=== PATIENT | male | born 1975 | race Caucasian/White ===

== ENCOUNTER 2018-04-27 15:21 | Emergency (ER) | payer MEDICAID, OTHER ==
[~2018-04-27] VITALS: Ht 172.7 cm; Wt 76.2 kg
[2018-04-27] MEDS ORDERED: SODIUM CHLORIDE 0.9% 1,000 ML IV ONE (16:10)
[2018-04-27 16:28] LABS: Basophils # (auto) 0.1 uL; Eosinophils # (auto) 0 uL; Monocytes # (auto) 0.9 uL; Nucleated Red Blood Cells % 0.1 %; Red Cell Distribution Width 13.4 % (11.8-14.3)
[2018-04-27 16:32] LABS: Basophils % (auto) 1.5 % (0.0-2.0); Calcium 8.4 mg/dL (8.5-10.1); Eosinophils % (auto) 0.5 % (0.0-7.0); Hematocrit 41.9 % (41.0-53.0); Hemoglobin 14.9 g/dL (13.5-17.5); Lymphocytes # (auto) 2.8 uL; Lymphocytes % (auto) 31.6 % (10.0-50.0); Mean Corpuscular Hemoglobin 33.4 pg (28.0-32.0); Mean Corpuscular Hgb Conc. 35.5 g/dL (32.0-36.0); Mean Corpuscular Volume 94.1 fL (80.0-100.0); Monocytes % (auto) 10.1 % (0.0-12.0); Neutrophils % (auto) 56.3 % (37.0-80.0); Platelet Count (auto) 487 10^3/uL (140-450); Red Blood Cells 4.46 10^6/uL (4.5-5.90); White Blood Cell 8.9 10^3/uL (4.4-10.8)
[2018-04-27 16:35] LABS: BUN/Creatinine Ratio 7.9; Bilirubin, Total 0.2 mg/dL (0.2-1.0); Total Protein 7.3 g/dL (6.4-8.2)
[2018-04-27 16:39] LABS: Potassium 2.9 mmol/L (3.5-5.1)
[2018-04-27] MEDS ORDERED: POTASSIUM CHL 20 Meq TABLET PO ONE ×2 (17:15→19:30)
[2018-04-27 18:05] LABS: Urine Bacteria NONE SEEN /hpf (None Seen); Urine Blood Negative /uL (Negative); Urine Specific Gravity 1.005 (1.001-1.035); Urine WBC <1 /hpf (0 - 3)
[2018-04-27 18:15] LABS: Amphetamine Screen, Urine NEGATIVE (NEGATIVE); Barbiturate Scree,Urine NEGATIVE (NEGATIVE); Benzodiazephine Screen, Urine NEGATIVE (NEGATIVE); Cannabinoid Screen, Urine NEGATIVE (NEGATIVE); Cocaine Screen, Urine NEGATIVE (NEGATIVE); Opiate Scree,Urine NEGATIVE (NEGATIVE); Phencyclidine Screen, Urine NEGATIVE (NEGATIVE)
[2018-04-27 18:36] VITALS: BP 132/77
== END 2018-04-27 20:13 | disposition home or self-care (01) ==
LOC: ER 15:23
DX: R42 Dizziness and giddiness (principal); E87.6 Hypokalemia; F10.129 Alcohol abuse with intoxication, unspecified; E11.9 Type 2 diabetes mellitus without complications; I10 Essential (primary) hypertension; F17.210 Nicotine dependence, cigarettes, uncomplicated
CPT/HCPCS: 36415; 71046; 80053; 80307; 80320; 81001; 84484; 85025; 93005; 94761; 96360; 99284; J7030

== ENCOUNTER 2020-11-15 08:38 | Inpatient (IN) | payer MEDICAID ==
[~2020-11-15] VITALS: Ht 177.8 cm; Wt 75.3 kg
[2020-11-15] MEDS ORDERED: LORazepam 2MG/ML-1ML VIAL ONE (09:34)
[2020-11-15 09:35] LABS: Basophils # (auto) 0.1 10 ^3/uL (0-0.2); Basophils % (auto) 1.3 % (0.0-2.0); Eosinophils # (auto) 0 10 ^3/uL (0-0.8); Mean Corpuscular Hgb Conc. 34.5 g/dL (32.0-36.0); Monocytes # (auto) 0.8 10 ^3/uL (0-1.3); Neutrophils # (auto) 8.2 10 ^3/uL (1.6-8.6); Nucleated Red Blood Cells % 0.1 %
[2020-11-15 09:36] LABS: Hematocrit 47.6 % (41.0-53.0); Hemoglobin 16.4 g/dL (13.5-17.5); Lymphocytes # (auto) 0.5 10 ^3/uL (0.4-5.4); Mean Corpuscular Hemoglobin 36.9 pg (28.0-32.0); Mean Corpuscular Volume 107.1 fL (80.0-100.0); Monocytes % (auto) 8.4 % (0.0-12.0); Neutrophils % (auto) 85.3 % (37.0-80.0); Platelet Count (auto) 130 10^3/uL (140-450); Red Blood Cells 4.44 10^6/uL (4.5-5.90); Red Cell Distribution Width 14.3 % (11.8-14.3); White Blood Cell 9.6 10^3/uL (4.4-10.8)
[2020-11-15 09:51] LABS: Albumin 4.2 g/dL (3.4-5.0); Anion Gap 21 (5-15); Blood Alcohol < 3.0 mg/dL (0-5); Blood Urea Nitrogen 5 mg/dL (7-18); Calcium 9.7 mg/dL (8.5-10.1); Carbon Dioxide 20 mmol/L (21-32); Chloride 95 mmol/L (98-107); Glucose 174 mg/dL (74-106); Magnesium 2.3 mg/dL (1.6-2.6); Potassium 3.3 mmol/L (3.5-5.1); Sodium 136 mmol/L (136-145)
[2020-11-15 09:56] LABS: Alanine Aminotransferase 83 U/L (16-61); Alkaline Phosphatase 91 U/L (45-117); Aspartate Aminotransferase 152 U/L (15-37); BUN/Creatinine Ratio 5.9; Bilirubin, Total 1.5 mg/dL (0.2-1.0); GFR African American 125 mL/min; GFR Non-African American 104 mL/min; Lactic Acid w/Reflex 9.1 mmol/L (0.4-2.0); Total Protein 7.8 g/dL (6.4-8.2)
[2020-11-15] MEDS ORDERED: PANTOPRAZOLE 40 MG/10 ML VIAL INJ IV ONE (10:00)
[2020-11-15] MEDS ORDERED: SODIUM CHLORIDE 0.9% 1,000 ML IV ONE (10:00)
[2020-11-15] MEDS ORDERED: ONDANSETRON HCL 4 MG/2 ML VIAL IV ONE (10:00)
[2020-11-15] MEDS ORDERED: LORazepam 2MG/ML-1ML VIAL IV ONE (10:15)
[2020-11-15 10:23] LABS: INR 1.01 (0.9-1.15)
[2020-11-15] MEDS ORDERED: POTASSIUM CHL 20MEQ/100ML 100 ML IV ONE (11:30)
[2020-11-15] MEDS ORDERED: MORPHINE SULF INJ 2 MG/ML SYRINGE 1ML IV PRN ×3 (11:30)
[2020-11-15] MEDS ORDERED: LORazepam 2MG/ML-1ML VIAL IV PRN ×2 (11:30→21:45)
[2020-11-15] MEDS ORDERED: PANTOPRAZOLE 40mg/50ML NS AE 50 ML IV ONE (11:30)
[2020-11-15] MEDS ORDERED: D5W/ SOD CHL 0.9%/KCL 20MEQ 1,000 ML IV SCH (11:30)
[2020-11-15] MEDS ORDERED: ONDANSETRON HCL 4 MG/2 ML VIAL IV PRN (11:30)
[2020-11-15] MEDS ORDERED: NITROGLYCERIN 0.4 MG SL TAB SL PRN (11:30)
[2020-11-15] MEDS ORDERED: FOLIC ACID INJ SCH ×10 (12:00→12:02)
[2020-11-15] MEDS ORDERED: MAGNESIUM SULF INJ SCH ×10 (12:00→12:02)
[2020-11-15] MEDS ORDERED: MULTIPLE VITAMIN INJ SCH ×10 (12:00→12:02)
[2020-11-15] MEDS ORDERED: [UNRECOGNIZED DRUG - OTHER] INJ SCH ×10 (12:00→12:02)
[2020-11-15] MEDS ORDERED: POTASSIUM CHLORIDE 20 MEQ, LIDOCAINE 1% (LOCAL ANESTH.) 2 ML in SODIUM CHL 0.9% 100 ML IV ONE (12:15)
[2020-11-15] MEDS: D5W/ SOD CHL 0.9%/KCL 20MEQ 1,000 ML IV SCH (21:31)
[2020-11-15 23:00] VITALS: BP 142/80
[2020-11-16] MEDS: D5W/ SOD CHL 0.9%/KCL 20MEQ 1,000 ML IV SCH ×2 (05:29→17:44)
[2020-11-16 06:37] LABS: Eosinophils # (auto) 0 10 ^3/uL (0-0.8); Lymphocytes # (auto) 0.9 10 ^3/uL (0.4-5.4); Mean Corpuscular Volume 105.9 fL (80.0-100.0); Monocytes # (auto) 0.6 10 ^3/uL (0-1.3)
[2020-11-16 06:41] LABS: Basophils # (auto) 0.1 10 ^3/uL (0-0.2); Basophils % (auto) 0.8 % (0.0-2.0); Eosinophils % (auto) 0.4 % (0.0-7.0); Hematocrit 38.9 % (41.0-53.0); Hemoglobin 13.4 g/dL (13.5-17.5); Lymphocytes % (auto) 14.7 % (10.0-50.0); Mean Corpuscular Hemoglobin 36.5 pg (28.0-32.0); Mean Corpuscular Hgb Conc. 34.5 g/dL (32.0-36.0); Monocytes % (auto) 10.3 % (0.0-12.0); Neutrophils # (auto) 4.5 10 ^3/uL (1.6-8.6); Neutrophils % (auto) 73.8 % (37.0-80.0); Platelet Count (auto) 86 10^3/uL (140-450); Red Blood Cells 3.67 10^6/uL (4.5-5.90); Red Cell Distribution Width 13.7 % (11.8-14.3); White Blood Cell 6.1 10^3/uL (4.4-10.8)
[2020-11-16 07:05] LABS: Albumin 3.2 g/dL (3.4-5.0); BUN/Creatinine Ratio 13.7; Bilirubin, Total 1.3 mg/dL (0.2-1.0); Calcium 8.3 mg/dL (8.5-10.1); Magnesium 2.5 mg/dL (1.6-2.6); Phosphorus 1.5 mg/dL (2.5-4.90); Total Protein 6.1 g/dL (6.4-8.2)
[2020-11-16 07:08] LABS: Folate (Folic Acid) 9.77 ng/mL (5.38-24)
[2020-11-16] MEDS ORDERED: POTASSIUM PHOSPHATE 44 MEQ in D5W 5% 250 ML IV ONE (08:00)
[2020-11-16 09:00] VITALS: BP 138/93
[2020-11-16] MEDS: PANTOPRAZOLE 40 MG/10 ML VIAL INJ IV SCH (09:40)
[2020-11-16] MEDS ORDERED: LISI2.5T47 PO (11:20)
[2020-11-16] MEDS ORDERED: ATEN-60 PO (11:20)
[2020-11-16 13:30] VITALS: BP 143/90
[2020-11-16] MEDS: FOLIC ACID 1 MG, MULTIPLE VITAMIN 10 ML, MAGNESIUM SULF SDV 50% 8 MEQ, THIAMINE INJ 100... INJ SCH ×5 (13:56)
[2020-11-16 16:40] VITALS: BP 144/92
[2020-11-16 21:52] VITALS: BP 142/103
[2020-11-16] MEDS: chlordiazePOXIDE HCL 25 MG CAP PO PRN (23:41)
[2020-11-17 05:00] VITALS: BP 150/93
[2020-11-17] MEDS: D5W/ SOD CHL 0.9%/KCL 20MEQ 1,000 ML IV SCH ×3 (05:49→12:20)
[2020-11-17 08:58] LABS: Urine Bacteria NONE SEEN /hpf (None Seen); Urine Blood Negative /uL (Negative); Urine Mucus FEW (None Seen); Urine Specific Gravity 1.012 (1.001-1.035); Urine WBC 4 /hpf (0 - 3)
[2020-11-17 09:00] VITALS: BP 155/99
[2020-11-17 09:01] LABS: Amphetamine Screen, Urine NEGATIVE (NEGATIVE); Barbiturate Scree,Urine NEGATIVE (NEGATIVE); Benzodiazephine Screen, Urine NEGATIVE (NEGATIVE); Cannabinoid Screen, Urine NEGATIVE (NEGATIVE); Cocaine Screen, Urine NEGATIVE (NEGATIVE); Opiate Scree,Urine NEGATIVE (NEGATIVE); Phencyclidine Screen, Urine NEGATIVE (NEGATIVE)
[2020-11-17] MEDS: PANTOPRAZOLE 40 MG/10 ML VIAL INJ IV SCH (09:01)
[2020-11-17] MEDS: chlordiazePOXIDE HCL 25 MG CAP PO PRN ×2 (09:01→17:06)
[2020-11-17] MEDS: FOLIC ACID 1 MG, MULTIPLE VITAMIN 10 ML, MAGNESIUM SULF SDV 50% 8 MEQ, THIAMINE INJ 100... INJ SCH ×5 (11:34)
[2020-11-17 12:26] LABS: Potassium 3.2 mmol/L (3.5-5.1)
[2020-11-17 12:31] LABS: BUN/Creatinine Ratio 5.4; Calcium 8.6 mg/dL (8.5-10.1); Phosphorus 2.9 mg/dL (2.5-4.90)
[2020-11-17 13:00] VITALS: BP 167/100
[2020-11-17 13:37] VITALS: BP 165/102
[2020-11-17 14:38] VITALS: BP 156/98
[2020-11-17 17:00] VITALS: BP 158/102
== END 2020-11-17 23:51 | disposition left against medical advice (07) | DRG 53 ==
LOC: EDBD 08:38 → ER 08:38 → TELE 11:26 → TELE-EAST 19:44
PROVIDERS: ADMIT Internal Medicine; ATTEND Internal Medicine
PROC: 0HQ0XZZ Repair Scalp Skin, External Approach (ICD-10-PCS; principal; 2020-11-15)
DX: G40.509 Epileptic seizures related to external causes, not intractable, without status epilepticus (principal); D69.6 Thrombocytopenia, unspecified; E87.8 Other disorders of electrolyte and fluid balance, not elsewhere classified; E88.09 Other disorders of plasma-protein metabolism, not elsewhere classified; E86.0 Dehydration; S01.01XA Laceration without foreign body of scalp, initial encounter; Z20.822 Contact with and (suspected) exposure to COVID-19; F10.239 Alcohol dependence with withdrawal, unspecified; D75.89 Other specified diseases of blood and blood-forming organs; E87.6 Hypokalemia; K70.9 Alcoholic liver disease, unspecified; F32.9 Major depressive disorder, single episode, unspecified; I10 Essential (primary) hypertension; Z53.29 Procedure and treatment not carried out because of patient's decision for other reasons; E11.9 Type 2 diabetes mellitus without complications; W18.39XA Other fall on same level, initial encounter; Y93.89 Activity, other specified; Y92.89 Other specified places as the place of occurrence of the external cause; Y99.8 Other external cause status; F17.210 Nicotine dependence, cigarettes, uncomplicated; Y90.0 Blood alcohol level of less than 20 mg/100 ml
CPT/HCPCS: 36415; 70450; 70551; 71045; 80048; 80053; 80307; 80320; 81001; 82550; 82607; 82746; 82962; 83605; 83735; 83880; 84100; 84484; 85025; 85610; 87426; 93005; 95819; 96361; 96365; 96375; 97116; 97530; C9113; G0378; J2001; J2405; J7042; J7060

== ENCOUNTER 2020-11-18 00:46 | Emergency (ER) | payer MEDICAID ==
[~2020-11-18] VITALS: Ht 172.7 cm; Wt 81.6 kg
[~2020-11-18 00:46] MED LIST: ATEN-60 PO; LISI2.5T47 PO
[2020-11-18] MEDS: LORazepam 0.5 MG TAB PO ONE ×2 (02:28→02:38)
[2020-11-18 02:40] VITALS: BP 136/83
[2020-11-21] MEDS ORDERED: GABA300C10 PO (09:25)
[2020-11-21] MEDS ORDERED: PANT40TA2 PO (09:25)
== END 2020-11-18 03:30 | disposition home or self-care (01) ==
LOC: ER 00:46
DX: F41.9 Anxiety disorder, unspecified (principal); F32.9 Major depressive disorder, single episode, unspecified; E11.9 Type 2 diabetes mellitus without complications; I10 Essential (primary) hypertension; F17.210 Nicotine dependence, cigarettes, uncomplicated; Z59.0 Homelessness
CPT/HCPCS: 99283; J7030

== ENCOUNTER 2020-11-18 12:44 | Emergency (ER) | payer MEDICAID ==
[~2020-11-18] VITALS: Ht 172.7 cm; Wt 79.4 kg
[2020-11-18 13:06] LABS: Basophils # (auto) 0.1 10 ^3/uL (0-0.2); Eosinophils # (auto) 0.1 10 ^3/uL (0-0.8); Monocytes # (auto) 0.9 10 ^3/uL (0-1.3)
[2020-11-18 13:07] LABS: Basophils % (auto) 1.1 % (0.0-2.0); Hematocrit 39.1 % (41.0-53.0); Hemoglobin 13.6 g/dL (13.5-17.5); Lymphocytes # (auto) 1.1 10 ^3/uL (0.4-5.4); Lymphocytes % (auto) 12.8 % (10.0-50.0); Mean Corpuscular Hemoglobin 36.8 pg (28.0-32.0); Mean Corpuscular Hgb Conc. 34.8 g/dL (32.0-36.0); Mean Corpuscular Volume 105.7 fL (80.0-100.0); Monocytes % (auto) 10.9 % (0.0-12.0); Neutrophils # (auto) 6.2 10 ^3/uL (1.6-8.6); Neutrophils % (auto) 74.2 % (37.0-80.0); Platelet Count (auto) 116 10^3/uL (140-450); Red Cell Distribution Width 13.8 % (11.8-14.3); White Blood Cell 8.4 10^3/uL (4.4-10.8)
[2020-11-18 13:22] LABS: Albumin 3.7 g/dL (3.4-5.0); Anion Gap 15 (5-15); Blood Urea Nitrogen 6 mg/dL (7-18); Calcium 9.2 mg/dL (8.5-10.1); Carbon Dioxide 21 mmol/L (21-32); Chloride 100 mmol/L (98-107); Glucose 78 mg/dL (74-106); Potassium 3.1 mmol/L (3.5-5.1); Sodium 136 mmol/L (136-145)
[2020-11-18 13:26] LABS: Alanine Aminotransferase 56 U/L (16-61); Alkaline Phosphatase 68 U/L (45-117); Aspartate Aminotransferase 73 U/L (15-37); BUN/Creatinine Ratio 14.3; Bilirubin, Total 1.4 mg/dL (0.2-1.0); GFR African American 283 mL/min; GFR Non-African American 234 mL/min; Total Protein 7.3 g/dL (6.4-8.2)
[2020-11-18 13:27] LABS: Blood Alcohol < 3.0 mg/dL (0-5)
[2020-11-18 13:36] LABS: Salicylate < 1.7 mg/dL (2.8-20.0)
[2020-11-18 13:41] LABS: Acetaminophen < 2.0 ug/mL (10-30)
[2020-11-18] MEDS ORDERED: SODIUM CHLORIDE 0.9% 1,000 ML IVB ONE (13:45)
[2020-11-18] MEDS ORDERED: THIAMINE 100mg/ml INJ (200mg/2ml VIAL) IV ONE (13:45)
[2020-11-18 15:00] VITALS: BP 142/90
[2020-11-18 15:00] LABS: Urine Bacteria NONE SEEN /hpf (None Seen); Urine Blood Negative /uL (Negative); Urine Specific Gravity 1.003 (1.001-1.035); Urine WBC None Seen /hpf (0 - 3)
[2020-11-18] MEDS ORDERED: LORazepam 2MG/ML-1ML VIAL IV ONE (15:00)
[2020-11-18 15:25] LABS: Alcohol, Urine < 3.0 mg/dL (0-10); Amphetamine Screen, Urine NEGATIVE (NEGATIVE); Barbiturate Scree,Urine NEGATIVE (NEGATIVE); Benzodiazephine Screen, Urine POSITIVE (NEGATIVE); Cannabinoid Screen, Urine NEGATIVE (NEGATIVE); Cocaine Screen, Urine NEGATIVE (NEGATIVE); Opiate Scree,Urine NEGATIVE (NEGATIVE); Phencyclidine Screen, Urine NEGATIVE (NEGATIVE)
[2020-11-18] MEDS ORDERED: POTASSIUM CHL 20 Meq TABLET PO ONE (16:15)
[2020-11-21] MEDS ORDERED: GABA300C10 PO (09:25)
[2020-11-21] MEDS ORDERED: PANT40TA2 PO (09:25)
== END 2020-11-18 15:54 | disposition left against medical advice (07) ==
LOC: ER 12:44
DX: F10.231 Alcohol dependence with withdrawal delirium (principal); E87.6 Hypokalemia; R00.0 Tachycardia, unspecified; F41.9 Anxiety disorder, unspecified; F32.9 Major depressive disorder, single episode, unspecified; E11.9 Type 2 diabetes mellitus without complications; I10 Essential (primary) hypertension; F17.210 Nicotine dependence, cigarettes, uncomplicated; Y90.0 Blood alcohol level of less than 20 mg/100 ml; Z79.899 Other long term (current) drug therapy; Z98.890 Other specified postprocedural states
CPT/HCPCS: 36415; 71045; 80053; 80307; 80320; 80329; 81001; 83735; 85025; 96374; 96375; 99284; J2060; J3411